=== PATIENT | male | born 1990 | race Caucasian/White ===

== ENCOUNTER 2017-03-14 11:07 | Emergency (ER) | payer MEDICAID ==
[~2017-03-14] VITALS: Ht 177.8 cm; Wt 54.4 kg
[~2017-03-14 11:07] MED LIST: MOTRIN 600MG.600 MG PO; NOMEDS XX; TESSALON PERLE100 M1 PO; ZITHROMAX Z PA250 MG PO
--- OUTSIDE RECORDS SUMMARY | 2017-03-14 11:12 | External Medical Summary Rpt ---
Author Author , Organization [employer] Address Unknown Phone Unavailable Care Team Providers Care Student Affairs Dean Name Role Phone NADEEM SILVER Unavailable Unavailable [facility], Unavailable Unavailable [facility] JOSE LUIS MARCELINO, JOSE LUIS Unavailable Unavailable [facility] Unavailable Unavailable [facility], [facility] Un[facility] Unavailable [facility], [facility], Unavailable Unavailable PLL[facility], [facility], [facility] CAROL GILLIAM Unavailable Unavailable CHRIS DOWD JAM, DOWD Unavailable Unavailable JAM SHARP NATY, SHARP NATY Unavailable Unavailable Purpose Continuity of Care Document - 02-20-2015 through 2016 Problems Code Diagnosis DOS Provider Status J209 ACUTE 04-19-2016 [facility] UNSPECIFIED PLLC R05 COUGH 04-19-2016 [facility] R0789 OTHER CHEST 04-19-2016 [facility] [id number] STRAIN 04-19-2016 [facility], TENDON PLLC FRONT WALL THORAX INIT Z720 TOBACCO USE 04-19-2016 [facility] M791 MYALGIA 12-08-2015 [facility] 7840 HEADACHE 02-20-2015 [facility] Procedures Procedure DOS Code Location Performer Comment RADEX 46786 [facility] RIBS UNI 6 MEDICAL W/POSTERO IMAGING ANT CH ASS MINIMUM 3 VIEWS URNLS DIP 71274 [facility]ES 6 [facility] STICK/TAB INC INC [place] [address] [facility] TROPONIN 6 [facility] QUANTITAT INC INC YAQUELIN BLOOD 93929 [facility] COUNT 6 [facility] COMPLETE INC INC AUTO&AUTO DIFRNTL WBC CREATINE 49041 [facility] KINASE 6 [facility] TOTAL INC INC SEDIMENTA 36414 [facility] TION RATE 6 [facility] RBC INC INC NON-AUTOM ATED COMPREHEN [address]IN[address]IVE [address] [facility] METABOLIC INC INC PANEL CREATINE 81144 [facility] HAINES KINASE MB [address] [facility] [place] [address] RADI[facility] DOWD HEAD/BRAI 5 JAM N W/O ASSOCIATE CONTRAST S OF NOTH MATERIAL GROUND A0425 [facility] EMS EMS STATUTE [facility] AMBULANCE A0429 [facility] 5 [facility]RE & FIRE & BLS EMS EMS EMERGENCY TRANSPORT Encounters Encounter Start End Date Code Location Performer Type Date [facility] 6 6 [facility] EM[facility] 36061 S[facility] MEDINA 6 6 PHYSICIAN CHRIS [facility] PLLC T VISIT MODERATE SEVERITY EMERGENCY 26831 [facility] 6 6 [facility] LOW/MODER SEVERITY [facility] Z[facility]I Mullen 6 6 [facility] 42750 SABA AMAYA 6 6 PHYSICIAN MARCELINO Escob[facility] PLLC T VISIT HIGH/URGE NT SEVERITY EMERGENCY 07179 ZAKI 6 6 [facility] DEPARTMEN INC T VISIT MODERATE SEVERITY EMERGENCY 50256 [place] [facility] NATY 5 5 EMERGENCY DEPARTMEN T VISIT PHYSICIAN HIGH/URGE S NT SEVERITY
--- OUTSIDE RECORDS SUMMARY | 2017-03-14 11:12 | External Medical Summary Rpt ---
Demographics Preferred Language Cape Verdean Marital Status Unknown Voodoo Affiliation Unknown Race Unknown Ethnic Group Unknown Author Author , Organization [employer] Address Unknown Phone Unavailable Purpose Continuity of Care Document - through 2016 Immunization No patient found.
--- OUTSIDE RECORDS SUMMARY | 2017-03-14 11:12 | External Medical Summary Rpt ---
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, [facility] CAROL GILLIAM Unavailable Unavailable CHRIS DOWD JAM, DOWD Unavailable Unavailable JAM SHARP NATY, SHARP NATY Unavailable Unavailable Purpose Continuity of Care Document - 02-20-2015 through 2016 Problems Code Diagnosis DOS Provider Status J209 ACUTE 04-19-2016 [facility] UNSPECIFIED PLLC R05 COUGH 04-19-2016 [facility] R0789 OTHER CHEST 04-19-2016 [facility] [id number] STRAIN 04-19-2016 [facility], TENDON PLLC FRONT WALL THORAX INIT Z720 TOBACCO USE 04-19-2016 [facility] M791 MYALGIA 12-08-2015 [facility] 7840 HEADACHE 02-20-[address] [facility] [address] [facility] Procedures Procedure DOS Code Location Performer Comment RADEX 05358 [facility] RIBS UNI 6 MEDICAL W/POSTERO IMAGING ANT CH ASS MINIMUM 3 VIEWS URNLS DIP 71709 [facility] HAINES 6 [facility] STICK/TAB INC INC [place] [address] [facility] HAINES TROPONIN 6 [facility] QUANTITAT INC INC YAQUELIN BLOOD 79802 [facility] HAINES COUNT 6 [facility] COMPLETE INC INC AUTO&AUTO DIFRNTL WBC CREATINE 04267 [facility]INES KINASE 6 [facility] TOTAL INC INC SEDIMENTA 93787 [facility] TION RATE 6 [facility] RBC INC INC NON-AUTOM ATED COMPREHEN 57189 [facility]IN[facility] SIVE 6 [facility] METABOLIC INC INC PANEL CREATINE 03938 [facility] HAINES KINASE MB 6 [facility] [place] [address] RADIOLOGY DOWD HEAD/BRAI 5 JAM N W/O ASSOCIATE CONTRAST S OF NOTH MATERIAL GROUND A0425 [facility] FIRE & PER EMS EMS STATUTE [facility] AMBULANCE A0429 [facility] SERVICE 5 FIRE & FIRE & BLS EMS EMS EMERGENCY TRANSPORT Encounters Encounter Start End Date Code Location Performer Type Date [facility] ZAKI - 6 6 [facility] OUTPATIEN [facility] T EMERGENCY 02304 SABA MEDINA 6 6 PHYSICIAN CHRIS [facility] PLLC T VISIT MODERATE SEVERITY EMERGENCY 80974 [facility] 6 [facility]ER SE[facility]ITY [facility] ZAKI Mullen 6 6 [facility] OUT[facility] T EMERGENCY 29651 SABA AMAYA 6 6 PHYSICIAN MARCELINO Esc[facility] PLLC T VISIT HIGH/URGE NT SEVERITY EMERGENCY 12722 ZAKI 6 6 [facility] DEPARTMEN INC T VISIT MODERATE SEVERITY EMERGENCY 84851 [place] [facility] NATY 5 5 EMERGENCY DEPARTMEN T VISIT PHYSICIAN HIGH/URGE S NT SEVERITY
--- OUTSIDE RECORDS SUMMARY | 2017-03-14 11:12 | External Medical Summary Rpt ---
Author Author , Organization [employer] Address Unknown Phone Unavailable Care Team Providers Care Textile Knitter Name Role Phone [facility], Unavailable Unavailable [facility] JOSE LUIS MARCELINO, JOSE LUIS Unavailable Unavailable [facility]ELINO [facility] Unavailable Unavailable INC, [facility] Unavailable Unavailable IM[facility]ING [facility], [facility], Unavailable Unavailable PLLC, [facility] Unavailable Unavailable OF [facility], [facility] CAROL GILLIAM Unavailable Unavailable CHRIS CHEN, DOWD Unavailable Unavailable JAM SHARP NATY, SHARP NATY Unavailable Unavailable Purpose Continuity of Care Document - 02-20-2015 through 2016 Problems Code Diagnosis DOS Provider Status J209 ACUTE 04-19-2016 [facility] UNSPECIFIED PLLC R05 COUGH 04-19-2016 [facility] R0789 OTHER CHEST 04-19-2016 [facility] [id number] STRAIN 04-19-2016 [facility], TENDON [facility] FRONT WALL THORAX INIT Z720 TOBACCO USE 04-19-2016 [facility] M791 MYALGIA 12-08-2015 [facility] 7840 HEADACHE 02-20-2015 [facility] Procedures Procedure DOS Code Location Performer Comment RADEX 37774 [facility] RIBS UNI 6 [facility] W/POSTERO INC INC ANT CH MINIMUM 3 VIEWS CREATINE 74308 [facility] KINASE 6 [facility] TOTAL INC INC SEDIMENTA 72811 [facility] TION RATE 6 [facility] RBC INC INC NON-AUTOM ATED COMPREHEN 27592 [facility] HAINES SIVE 6 [facility] METABOLIC INC INC PANEL CREATINE 30246 [facility] KINASE MB 6 [facility] FRACTION INC INC ONLY URNLS DIP 62076 [facility] HAINES 6 [facility] STICK/TAB INC INC [place] [address] [facility] HAINES TROPONIN 6 [facility] QUANTITAT INC INC YAQUELIN BLOOD 98360 [facility] HAINES COUNT 6 [facility] H[facility] COMPLETE INC INC AUTO&AUTO DIFRNTL WBC GROUND A0425 [facility] MILEAGE 5 FIRE & FIRE & PER EMS EMS STATUTE MILE AMBULANCE A0429 [facility] SERVICE 5 FIRE & FIRE & BLS [place] [address] RADIOLOGY DOWD HEAD/BRAI 5 JAM N W/O ASSOCIATE CONTRAST S OF NOT MATERIAL Encounters Encounter Start End Date Code Location Performer Type Date EMERGENCY 24564 [facility] 6 [facility] L[facility]/MODER SEVERITY [facility]OSP[facility] Z[facility]I - 6 6 [facility] T EMERGENCY 39508 SABA MEDINA 6 6 PHYSICIAN CHRIS CERONMEN S, PLLC T VISIT MODERATE SEVERITY EMERGENCY 21418 SABA AMAYA 6 6 PHYSICIAN MARCELINO DEPARTMEN S, PLLC T VISIT HIGH/URGE NT SEVERITY HOSPITAL ZAKI - 6 6 [facility] T EMERGENCY 54633 ZAKI 6 6 [facility] VISIT MODERATE SEVERITY EMERGENCY 93874 [place] SHARP NATY 5 5 EMERGENCY DEPARTMEN T VISIT PHYSICIAN HIGH/URGE S NT SEVERITY
--- OUTSIDE RECORDS SUMMARY | 2017-03-14 11:12 | External Medical Summary Rpt ---
Author Author MAURICIO Garcia, MAURICIO Garcia Organization [employer] Address Unknown Phone Unavailable
--- OUTSIDE RECORDS SUMMARY | 2017-03-14 11:12 | External Medical Summary Rpt ---
Demographics Preferred Language Honduran Marital Status Unknown Orthodox Affiliation Unknown Race Unknown Ethnic Group Unknown Author Author , Organization [employer] Address Unknown Phone Unavailable Purpose Continuity of Care Document - through 2016 Immunization No patient found.
--- OUTSIDE RECORDS SUMMARY | 2017-03-14 11:12 | External Medical Summary Rpt ---
Author Author , Organization [employer] Address Unknown Phone Unavailable Care Team Providers Care Quality Lab Technician Name Role Phone [facility], Unavailable Unavailable [facility] JOSE LUIS MARCELINO, JOSE LUIS Unavailable Unavailable [facility]ELINO [facility] Unavailable [facility] INC, [facility] Unavailable Unavailable [facility], [facility], Unavailable Unavailable PLL[facility], [facility] Unavailable Unavailable OF [facility], [facility] CAROL GILLIAM Unavailable Unavailable CHRIS CHEN, DOWD Unavailable Unavailable JAM SHARP NATY, SHARP NATY Unavailable Unavailable Purpose Continuity of Care Document - 02-20-2015 through 2016 Problems Code Diagnosis DOS Provider Status J209 ACUTE 04-19-2016 [facility] UNSPECIFIED PLLC R05 COUGH 04-19-2016 [facility] R0789 OTHER CHEST 04-19-2016 [facility] [id number] STRAIN 04-19-2016 [facility], TENDON [facility] FRONT WALL THORAX INIT Z720 TOBACCO USE 04-19-2016 [facility] M791 MYALGIA 12-08-2015 [facility] 7840 HEADACHE 02-20-2015 [facility] Procedures Procedure DOS Code Location Performer Comment RADEX 43679 [facility] RIBS UNI 6 [facility] W/POSTERO INC INC ANT CH MINIMUM 3 VIEWS CREATINE 66797 [facility]IN[facility] KINASE 6 [facility] TOTAL INC INC SEDIMENTA 52021 [facility] TION RATE 6 [facility] RBC INC INC NON-AUTOM ATED COMPREHEN 06297 [facility]INES SIVE 6 [facility] METABOLIC INC INC PANEL CREATINE 21896 [facility] HAINES KINASE MB 6 [facility] FRACTION INC INC ONLY URNLS DIP 50129 [facility] HAINES 6 [facility] STICK/TAB INC INC [place] [address] Z[facility] HAINES TROPONIN 6 [facility] QUANTITAT INC INC YAQUELIN BLOOD 19294 [facility] HAINES COUNT 6 MEM H[facility] COMPLETE INC INC AUTO&AUTO DIFRNTL WBC GROUND A0425 [facility] MILEAGE 5 FIRE & FIRE & PER EMS EMS STATUTE MILE AMBULANCE A0429 [facility] SERVICE 5 FIRE & FIRE & BLS [place] [address] RADIOLOGY DOWD HEAD/BRAI 5 JAM N W/O ASSOCIATE CONTRAST S OF NOT MATERIAL Encounters Encounter Start End Date Code Location Performer Type Date EMERGENCY 14480 [facility] 6 6 [facility] LOW/MODER SEVERITY [facility]OSPITAL ZAKI - 6 6 [facility] EMERGENC[facility] 74357 SABA MEDINA 6 6 PHYSICIAN CHRIS CERONMEN S, PLLC T VISIT MODERATE SEVERITY EMERGENCY 91243 SABA AMAYA 6 6 PHYSICIAN MARCELINO DEPARTMEN S, PLLC T VISIT HIGH/URGE NT SEVERITY HOSPITAL ZAKI - 6 6 [facility] EMER[facility]ENC[facility] 88405 ZAKI 6 6 [facility]ISIT MODERATE SEVERITY EMERGENCY [address] [place] SHARP NATY 5 5 EMERGENCY DEPARTMEN T VISIT PHYSICIAN HIGH/URGE S NT SEVERITY
--- NOTE | 2017-03-14 11:19 | Emergency Room Report ---
History of Present Illness Time Seen by 1110 Presenting Problem in Triage Pt arrived:Walked Presenting Problem:PT C/O LEFT EYE WATERING AND STINGING SINCE MONDAY. 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 N Clinical Suspician of Infection? N Mental Status: 1 - Regular (Normal Baseline) Sepsis Risk:Low Sepsis Risk Have you (or family members/close friends) recently traveled outside the [place]? N If Yes, where/when: Have you had exposure to infectious disease within the past month? N TB? Other? Specify: Comment The patient complains of LEFT eye irritation, pain, watering, and photophobia since Monday 4 days ago. He does not wear contact lenses. No trauma remembered. 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 ALLERGIES Coded Allergies: No Known Allergies (12/08/15) Home Medications Reported Medications No Home Medications (NO HOME MEDICATIONS) 1 EACH XX ONCE History Medical History General CAD? No Angina: No MS: No Hypertension? No Hyperlipidemia? No CHF? No DVT? No PE? No COPD? No Asthma? No Anemia? No GERD? No Gastric ulcers? No GI Bleed? No Hernia? No Thyroid Problems? No Hypothyroidism? No CVA? No Seizures? No Diabetes? No End Stage Renal Disease? No UTI? No Stones? No BPH? No GB Disease: No Nephritic Syndrome? No Asplenia? No Hepatitis? No Sickle Cell Disease? No Arthritis? No Migraines? No Cataracts? No Glaucoma? No MRSA? No HIV? No TB? No Anxiety? No Depression? No Cancer? No More? Yes Additional hx: SCOLIOSIS Immunization Hx DT/Tetanus Unknown Surgical Hx Previous Surgery?N Social History Smoking Hx Smoker: Current Every Day Smoker Tobacco: Yes Type Cigarettes Packs/day < 1 Pack Alcohol Alcohol: No Review of Systems All Other Systems Reviewed and Negative Eyes see HPI, foreign body sensation, pain, photophobia, denies blindness Physical Exam Vital Signs Vital Signs Date Time Temp Pulse Resp B/P Pulse O2 O2 Flow FiO2 Ox Delivery Rate 03/14 1112 98.6 80 16 128/85 98 General Appearance pain and photophobia left eye Eye Exam - bilateral eye PERRL, bilateral eye EOMI Comment Lids without edema. Lids everted, no conjunctival foreign body. Metallic corneal foreign body at the 6 o'clock position. Fluorescein staining shows uptake at site of foreign body only. Respiratory Status No: respiratory distress. Cardiovascular regular rate/rhythm Neurologic alert Medical Decision Making LABS/Meds/Orders Pt receiving controlled substance in ED? No Results/Orders Current Medication Orders Sig/Sara Start time Last Medication Dose Route Stop Time Status Admin Miscellaneous 0 .STK-MED ONE 03/14 1112 DC XX Orders Procedure Date/time Status GEN NSG/PT REQ (NOT FOR MEDS!) 03/14 1119 Active Procedures Eye Procedure Progress FOREIGN BODY REMOVAL Performed by: BRITTANI MEDINA Consent: Verbal consent obtained. Risks and benefits: risks, benefits and alternatives were discussed Consent given by: patient Patient identity confirmed: verbally with patient Type: Metallic Location: LEFT cornea Anesthesia: Tetracaine drops Patient sedated: no Wound treatment: Foreign body removed in its entirety without difficulty. No rust ring seen. Patient tolerance: Patient tolerated the procedure well with no immediate complications Departure Departure Disposition DC Home or Self Care(routine) Clinical Impression Primary Impression: Foreign body of left cornea Qualifiers: Encounter type: initial encounter Qualified Code: T15.02XA - Foreign body in cornea, left eye, initial encounter Condition STABLE Referrals JANETTE SUGGS 1-2 days Patient Instructions DI for Foreign Body in the Eye Additional Instructions Use erythromycin ointment in left eye 4 times a day for 2 days. Ibuprofen for pain. Additional instructions for EYE PAIN or INJURY: Follow up with an postal service mail processor as soon as possible. Return to the emergency department if severe pain, loss of vision, pus drainage, severe swelling or redness of eyelids. ED Critical Care Critical Care No at 1147
[2017-03-14 11:51] VITALS: BP 112/76
== END 2017-03-14 11:53 | disposition home or self-care (01) ==
LOC: ER 11:07
PROC: 08C9XZZ Extirpation of Matter from Left Cornea, External Approach (ICD-10-PCS; principal; 2017-03-14)
DX: T15.02XA Foreign body in cornea, left eye, initial encounter (principal)